=== PATIENT | female | born 1955 | race Two or more races ===

== ENCOUNTER 2017-01-22 14:22 | Outpatient (CLI) | payer OTHER ==
[~2017-01-22] VITALS: Ht 154.9 cm; Wt 75.2 kg
[2017-01-22 14:46] VITALS: Ht 154.9 cm; Wt 75.2 kg
[2017-01-22] MEDS ORDERED: THEO200C3 PO (14:46)
[2017-01-22] MEDS ORDERED: MOME13HF INHALATION (14:46)
[2017-01-22] MEDS ORDERED: AZIT250T6 PO (14:46)
[2017-01-22] MEDS ORDERED: OMEP20CA16 PO (14:46)
[2017-01-22] MEDS ORDERED: ALBU90AE INHALATION (14:46)
[2017-01-22] MEDS ORDERED: CETI10TA34 PO (14:46)
[2017-01-22] MEDS ORDERED: LEVO250T9 PO (14:46)
[2017-01-22] MEDS ORDERED: PRED20TA PO (14:46)
[2017-01-22] MEDS ORDERED: TIOT18CA INHALATION (14:46)
[2017-01-22] MEDS ORDERED: FLUT9.9S NASAL (14:46)
[2017-01-22 14:47] VITALS: BP 171/83; PULSE 98; RESP 24
--- NOTE | 2017-01-22 16:15 | PN ---
Date/Time of Note Date/Time of Note DATE: 01/22/17 TIME: 16:09 Outpatient Progress Note Chief Complaint Acute exacerbation of COPD,/BA/PUD/hypertension HPI Acute exacerbation of COPD/patient has acute exhibition of COPD, patient was recently hospitalized, patient still on steroid and inhaler, patient doing slightly better, BA/no cough expectoration, no headache or dizziness, patient has a CPAP, using more often, PUD/no nausea or vomiting, no hematemesis melena, Hypertension/no headache or dizziness, lightheadedness, no local focal weakness, Review of Systems Const: No Fever, no chills, no Wt. loss, no Fatigue, normal appetite, no diaphoresis. Eyes: No pain, no discharge, no redness, no visual change, no foreign body. ENT: No pain, no bleeding, no congestion, no sore throat, no dysphagia, no discharge or rhinitis. Lymph: No adenopathy, no tender nodes, no lymphedema. Resp: No SOB, slight cough, no sputum, mild to moderate wheezing, no chest pain. , Left-sided rib pain, especially on coughing es CV: No chest pain, no palpitaions, no AMADOR, no PND, no edema. GI: Normal appetite, no pain, no nausea, no vomiting, no diarrhea, no blood, no constipation. : No frequency, no urgency, no dysuria, no hematuria, no flank pain, no discharge, no bleeding. Musc: No bone/joint pain, no back pain, no neck pain, no knee pain, no restricted ROM. Skin: No rash, no skin lesions, no erythema, no laceration, no bruising, no pruritus. Neuro: No NATH, no dizziness, no syncope, no seizure, no focal-weakness. Endo: No polyuria, no polydypsia, no dry-skin, no temp-intolerance. Psych: No hallucinations, no depression, no anxiety, no suicidal ideation. Ext: No edema, no pain, no ulcer, no weakness. Physical Exam Vital Signs Date Time Temp Pulse Resp B/P Pulse Ox O2 Delivery O2 Flow Rate FiO2 01/22/17 14:47 98.3 98 24 171/83 93 Room Air General Appearance: A 61 year-old female atic. Pupils equal, round, reactive to light and accommodate. Sclerae are no jaundice. Nasal turbinates pink without erythema or nasal discharge. Mucous membranes pink and moist without lesions. Oropharynx clear without any exudate or discharge. NECK: Supple. Trachea midline, No thyromegaly, No cervical lymphadenopathy, No mass, No carotid bruits, No JVD, Carotid pulses 2+ bilaterally. PULMONARY: Clear to auscultaion bilaterally, No retractions, Chest expansion symmetric bilaterally, no rales, bilateral inspiratory expiratory ronchi, no dulness on percussion. CARDIAC: Normal SI and S2, Regular rate and rythm, no murmur, gallop, or rub. GASTROINTESTINAL: Abdomen is soft, non-tender, Non Rigid, No distention, Positive bowel sounds x4 quadrants, Liver normal. SKIN: Warm, dry, no rash, no bruise, no echmosis. EXTREMITIES: Bilateral lower extremities normal, no edema, no phlabitus, pulse palpable, no contracture. MUSCULOSKELETAL: Spine Normal, Non-tender, Normal range of motion, No swelling, no deformity, no clubbing, or cyanosis, the patient has no edema to bilateral lower extremities, dorsalis pedis pulses palpable bilaterally. NEUROLOGIC: The patient is awake, alert, oriented, responding to yes/no questions appropriately, moving all extremities, cranial nerve intact, normal strenght, normal power, normal coordination, normal gait. Allergies Coded Allergies: No Known Drug Allergies (Verified Allergy, Unknown, 01/22/17) [facility] Acute exhibition of COPD/BA/PUD/hypertension/obesity Social Hx No smoking no drinking, Family Hx Noncontributory Assessment/Plan Impression Acute exacerbation of COPD/BA/PUD/hypertension Plan Patient was recently hospitalized, patient still has coughing, patient on steroid and inhaler, patient needs taking medication regularly, Patient advised not to miss any dose, Patient advised to finish prednisone, Patient encouraged to follow with the primary care physician, patient advised to lose weight, and increase activity slowly, and also use CPAP on a regular basis, Patient blood pressure slightly elevated, according to family that patient has been stable, will see if her blood pressure comes down at home, if it does not come down then will add medication for blood pressure, Patient to follow with the primary care physician, in a week or so and if blood pressure remains elevated patient will need a new medication, Medications Home Meds Reported Medications Theophylline Anhydrous* ([place]-24*) 200 Mg Cap.sr.24h, 200 MG PO DAILY, CAP 01/22/17 Tiotropium [place]* (Spiriva*) 18 Mcg Cap.w.dev, 1 CAP INHALATION DAILY, #30 CAP 01/22/17 Prednisone (Prednisone) 20 Mg Tab, 60 MG PO DAILY, TAB 01/22/17 Omeprazole* (Omeprazole*) 20 Mg Capsule.dr, 20 MG PO DAILY, #30 CAP 01/22/17 Levofloxacin* (Levofloxacin*) 250 Mg Tablet, 250 MG PO DAILY, TAB 01/22/17 Fluticasone Propionate (Flonase Allergy Relief) 9.9 Ml [place].susp, 1 SPRAY NASAL BID, #1 BOTTLE TO EACH NOSTRIL 01/22/17 Mometasone-Formoterol (Dulera) 200-5 Mcg/Inh - 13 Gm Hfa.aer.ad, 2 PUFFS INHALATION BID, #1 INHALER 01/22/17 Cetirizine Hcl* (Cetirizine Hcl*) 10 Mg Tab.chew, 10 MG PO DAILY, #30 TAB 01/22/17 Azithromycin* (Azithromycin*) 250 Mg Tablet, 250 MG PO DAILY, #4 TAB 01/22/17 Albuterol Sulfate (Proair Respiclick) 90 Mcg Aer.pow.ba, 1 PUFF INHALATION Q4 Y for SHORTNESS OF BREATH, #1 BOTTLE 01/22/17 LARISSA HANLEY MD Jan 22, 2017 16:15
== END 2017-01-22 17:00 | disposition home or self-care (01) ==
LOC: DCC 14:22
PROVIDERS: ATTEND Internal Medicine
DX: J44.1 Chronic obstructive pulmonary disease with (acute) exacerbation (principal); K27.9 Peptic ulcer, site unspecified, unspecified as acute or chronic, without hemorrhage or perforation; I10 Essential (primary) hypertension; G47.33 Obstructive sleep apnea (adult) (pediatric)